=== PATIENT | male | born 1980 | race Two or more races ===

== ENCOUNTER → 2023-07-31 | Day surgery (SDC) | payer BC ==
[~2023-07-31] MED LIST: FENTANYL CITRATE/PF 100MCG/2 ML INJ IJ ONE; LIDOCAINE HCL 2% LOCAL INJ 5 ML SDV VIAL INJ ONE; LOSARTAN POTASS25 MG PO; METOCLOPRAMIDE HCL 10 MG/2ML VIAL IV ONE; MULTI-VITAMIN1 EACH PO; OMEPRAZOLE40 MG PO; PROPOFOL IV EMULSION 10 MG/ML 20 ML VIAL IV ONE; TRELEGY ELLIPT1 EACH INH
[2023-07-31] MEDS: LACTATED RINGER'S 1,000 ML ONE (13:43)
[2023-07-31 15:45] VITALS: BP 126/78; PULSE 81; RESP 18; O2SAT 98
== END | disposition home or self-care (01) ==
LOC: OR 13:16
PROVIDERS: ATTEND Internal Medicine Gastroenterology
DX: K29.70 Gastritis, unspecified, without bleeding (principal); K20.90 Esophagitis, unspecified without bleeding; K21.9 Gastro-esophageal reflux disease without esophagitis; K59.09 Other constipation; Z71.3 Dietary counseling and surveillance; I10 Essential (primary) hypertension; J45.909 Unspecified asthma, uncomplicated; E66.01 Morbid (severe) obesity due to excess calories; Z88.6 Allergy status to analgesic agent; Z91.041 Radiographic dye allergy status; Z88.0 Allergy status to penicillin; Z91.013 Allergy to seafood; Z01.810 Encounter for preprocedural cardiovascular examination; Z79.899 Other long term (current) drug therapy; Z68.33 Body mass index [BMI] 33.0-33.9, adult
CPT/HCPCS: 43239; 43450; 93005; C9113; J2001; J2704; J2765; J3010; J7121